=== PATIENT | female | born 1950 | race Caucasian/White ===

== ENCOUNTER 2019-01-28 11:01 | Inpatient (IN) | payer BC ==
[2019-01-28 12:59] VITALS: BMI 20.5
[2019-01-28] MEDS ORDERED: ALBUTEROL SO4 8 GM HFA INHALER IH PRN (13:37)
[2019-01-28] MEDS ORDERED: ALBUTEROL SO4 2.5/IPRATROPIUM 0.5 INH SOL 3 ML VIAL.NEB. NEB PRN (13:39)
--- NOTE | 2019-01-28 13:42 | HP ---
CIWA Score Nausea/Vomitin Muscle Tremors: 4-Moderate,w/Arms Extend Anxiety: 3 Agitation: 0-Normal Activity Paroxysmal Sweats: 1-Minimal Palms Moist Orientation: 0-Oriented Tacttile Disturbances: 1-Very Mild Itch/Numbness Auditory Disturbances: 0-None Visual Disturbances: 0-None Headache: 0-None Present CIWA-Ar Total Score: 12 - Admission Criteria OAS Guidelines: Admission for Medically Managed Detox: Requires at least one of the followin. CIWA greater than 12 2. Seizures within the past 24 hours 3. Delirium tremens within the past 24 hours 4. Hallucinations within the past 24 hours 5. Acute intervention needed for co occurring medical disorder 6. Acute intervention needed for co occurring psychiatric disorder 7. Severe withdrawal that cannot be handled at a lower level of care (continued vomiting, continued diarrhea, abnormal vital signs) requiring intravenous medication and/or fluids 8. Patient presents the following: CIWA greater than 12 Admission Criteria Met: Admission criteria met Admission ROS [facility] Chief Complaint: alcohol detox Allergies/Adverse Reactions: Allergies Allergy/AdvReac Type Severity Reaction Status Date / Time levofloxacin [From Levaquin] Allergy Unknown Vomiting Verified 01/28/19 12:30 History of Present Illness: 68 yo female with hx alcohol depence is here seeking detox. Reports was evaluated at [facility] last night for withdrawal symptoms and was referred to our facility d/t lack of beds. Reports last detox at [facility] detox two years ago. PMHX: HDL, Pancreatitis, HTN, Asthma, GERD, OA, Chronic Back pain Denies psych hx Denies SI/HI Denies hx of seizures or blackouts Reports no significant period of sobriety Exam Limitations: No Limitations - Ebola screening Have you traveled outside of the country in the last 21 days: No Have you had contact with anyone from an Ebola affected area: No Do you have a fever: No - Review of Systems Constitutional: Loss of Appetite, Weakness, Other (fatigue) EENT: reports: No Symptoms Reported Respiratory: reports: No Symptoms reported Cardiac: reports: No Symptoms Reported GI: reports: Nausea, Vomiting, Indigestion : reports: Dysuria Musculoskeletal: reports: Back Pain Integumentary: reports: No Symptoms Reported Neuro: reports: Weakness Hematology: reports: No Symptoms Reported Psychiatric: reports: Orientated x3, Anxious Other Systems: Reviewed and Negative Patient History - Patient Medical History Hx Anemia: No Hx Asthma: Yes Hx Chronic Obstructive Pulmonary Disease (COPD): No Hx Cancer: Yes (melanona tx ) Hx Cardiac Disorders: No Hx Congestive Heart Failure: No Hx Hypertension: Yes (on losartan 50 mg qd) Hx Hypercholesterolemia: Yes Hx Pacemaker: No HX Cerebrovascular Accident: No Hx Seizures: No Hx Dementia: No Hx Diabetes: No Hx Gastrointestinal Disorders: Yes (GERD, Pancreatitis ) Hx Liver Disease: No Hx Genitourinary Disorders: Yes (hx of hystorectomy 2000) Hx Sexually Transmitted Disorders: No Hx Renal Disease (ESRD): No Hx Thyroid Disease: No Hx Human Immunodeficiency Virus (HIV): No (declines testing ) Hx Hepatitis C: No Hx Depression: No Hx Suicide Attempt: No Hx Bipolar Disorder: No Hx Schizophrenia: No - Patient Surgical History Past Surgical History: Yes Other Surgical History: hystorectomy, melenomam foot sx - PPD History Previous Implant?: No (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 History Hx Alcohol Use: Yes Hx Substance Use: Yes Substance Use Type: Alcohol Hx Substance Use Treatment: Yes ([facility] detox two years ago.) - Substances abused Alcohol Substance route: Oral Frequency: Daily Amount used: 6 glasses of danny (8oz) Age of first use: 15 Date of last use: 01/28/19 Family Disease History - Family Disease History Family History: Denies Admission Physical Exam BHS - Vital Signs Vital Signs: Vital Signs - 24 hr 01/28/19 12:54 Temperature 99.3 F Pulse Rate 91 H Blood Pressure 86/59 L - Physical General Appearance: Yes: Appropriately Dressed, Thin, Tremorous, Anxious HEENTM: Yes: EOMI, Hearing grossly Normal, Normal ENT Inspection, Normocephalic , Normal Voice, DEBORAH, Pharynx Normal, Tm's normal Respiratory: Yes: Chest Non-Tender, Lungs Clear, Normal Breath Sounds, No Respiratory Distress, No Accessory Muscle Use Neck: Yes: Within Normal Limits Breast: Yes: Breast Exam Deferred Cardiology: Yes: Regular Rhythm, Regular Rate Abdominal: Yes: Normal Bowel Sounds, Non Tender, Flat, Soft Genitourinary: Yes: Within Normal Limits Back: Yes: Normal Inspection Musculoskeletal: Yes: full range of Motion, Gait Steady, Pelvis Stable, Back pain Extremities: Yes: Normal Capillary Refill, Normal Inspection, Normal Range of Motion, Non-Tender Neurological: Yes: 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 intact, Fully Oriented, Alert, Motor Strength 5/5, Depressed Affect Integumentary: Yes: Normal Color, Dry, Warm Lymphatic: Yes: Within Normal Limits - Diagnostic (1) Dysuria Current Visit: Yes Status: Acute (2) History of positive PPD Current Visit: Yes Status: Chronic (3) Alcohol dependence with uncomplicated withdrawal Current Visit: Yes Status: Acute (4) GERD (gastroesophageal reflux disease) Current Visit: Yes Status: Chronic (5) Hx of pancreatitis Current Visit: Yes Status: Chronic Comment: on Creon (6) HTN (hypertension) Current Visit: Yes Status: Chronic Qualifiers: Hypertension type: essential hypertension Qualified Code(s): I10 - Essential (primary) hypertension (7) Asthma Current Visit: Yes Status: Chronic Qualifiers: Asthma severity: severe Asthma persistence: persistent Asthma complication type: uncomplicated Qualified Code(s): J45.50 - Severe persistent asthma, uncomplicated (8) Hyperlipidemia Current Visit: Yes Status: Chronic Qualifiers: Hyperlipidemia type: unspecified Qualified Code(s): E78.5 - Hyperlipidemia , unspecified Cleared for Admission S - Detox or Rehab [facility] Level of Care: Medically Managed Detox Regimen/Protocol: Librium Breathalyzer - Breathalyzer Breathalyzer: 0 POC Urine test - Test device test lot number: [id number] Expiration date: 06/11/20 - Control test control: Yes - Result Urine Test Results: Negative - NO line present Urine Drug Screen - Test Device Lot number: [id number] Expiration date: 09/11/20 - Control Is test valid?: Yes - Results Drug screen NEGATIVE: Yes Inpatient Rehab Admission - Rehab Decision to Admit Inpatient rehab admission?: No
[2019-01-28] MEDS ORDERED: MENTHOL/PHENOL 1 EACH UD MM PRN (13:49)
[2019-01-28] MEDS ORDERED: MELATONIN 5 MG TABLETS PO PRN (13:49)
[2019-01-28] MEDS ORDERED: guaiFENesin 200 MG/10 ML 10 ML UNIT-DOSE CUPS PO PRN (13:49)
[2019-01-28] MEDS ORDERED: MAGNESIUM HYDROX 2400MG/30ML ORAL SUSPENSION 30 ML CUP PO PRN (13:49)
[2019-01-28] MEDS ORDERED: METHOCARBAMOL 500 MG TABLET PO PRN (13:49)
[2019-01-28] MEDS ORDERED: MAGNESIUM CITRATE 300 ML BOTTLE PO PRN (13:49)
[2019-01-28] MEDS ORDERED: P-EPHED 60MG/TRIPROLIDI 2.5MG TABLET PO PRN (13:49)
[2019-01-28] MEDS ORDERED: chlordiazePOXIDE HCL 10 MG CAPSULE PO PRN (13:49)
[2019-01-28] MEDS ORDERED: ACETAMINOPHEN 325 MG TABLET (FP) PO PRN ×2 (13:49)
[2019-01-28] MEDS ORDERED: IBUPROFEN 400 MG TABLET (FP) PO PRN (13:49)
[2019-01-28] MEDS ORDERED: BISMUTH SUBSALICYLATE 262 MG/15 ML BTL PO PRN (13:49)
[2019-01-28 16:36] LABS: HEMATOCRIT 34.7 % (32.4-45.2); HEMOGLOBIN 12.1 GM/dL (10.7-15.3); MCH 35.2 pg (25.7-33.7); MCHC 34.8 g/dl (32.0-36.0); MEAN CELL VOLUME 101.1 fl (80-96); MEAN PLT VOLUME 8.9 fl (7.5-11.1); PLATELET COUNT 260 K/MM3 (134-434); RBC 3.43 M/mm3 (3.60-5.2); RDW 14.2 % (11.6-15.6); WHITE BLOOD COUNT 7.3 K/mm3 (4.0-10.0)
[2019-01-28 16:43] LABS: ALBUMIN 3.4 g/dl (3.4-5.0); ALK PHOS 67 U/L (45-117); ANION GAP 6 MMOL/L (8-16); BILIRUBIN,TOTAL 0.6 mg/dL (0.2-1); BLOOD UREA NITROGEN 13 mg/dL (7-18); CALCIUM 9.4 mg/dL (8.5-10.1); CHLORIDE 104 mmol/L (98-107); CO2 30 mmol/L (21-32); GLUCOSE,RANDOM 108 mg/dL (74-106); POTASSIUM 3.4 mmol/L (3.5-5.1); SGOT/AST 40 U/L (15-37); SGPT/ALT 52 U/L (13-61); SODIUM 139 mmol/L (136-145); TOT PROT 6.6 g/dl (6.4-8.2)
[2019-01-28 17:36] LABS: URINE APPEARANCE CLOUDY; URINE BILIRUBIN NEGATIVE (NEGATIVE); URINE COLOR YELLOW; URINE GLUCOSE (UA) NEGATIVE (NEGATIVE); URINE KETONE NEGATIVE (NEGATIVE); URINE LEUK ESTERASE 3+ (NEGATIVE); URINE NITRITE NEGATIVE (NEGATIVE); URINE PROTEIN 1+ (NEGATIVE); URINE UROBILINOGEN 0.2 mg/dL (0.2-1.0)
[2019-01-28] MEDS: PATIENT'S OWN MEDICATION (NON-FORMULARY) (Lipase/Protease/Amylase [Creon Dr 24,000 Units C PO SCH (17:37)
[2019-01-28 19:20] LABS: EPI CELLS FEW /HPF (0-5/HPF); URINE BACTERIA RARE /hpf (NEGATIVE); URINE WBC 30-50 /hpf (0-5)
[2019-01-28 19:21] LABS: URINE RBC 0-2 /hpf (0-4)
[2019-01-28] MEDS: MAG HYDROX/AL HYDROX/SIMETH 30 ML UNIT-DOSE CUP PO PRN (21:14)
[2019-01-28] MEDS: chlordiazePOXIDE HCL 25 MG CAPSULE PO SCH (22:31)
[2019-01-28] MEDS: THIAMINE HCL 100 MG TABLET (FP) PO SCH (22:31)
[2019-01-29] MEDS: chlordiazePOXIDE HCL 25 MG CAPSULE PO SCH ×2 (05:34→12:10)
[2019-01-29] MEDS: PATIENT'S OWN MEDICATION (NON-FORMULARY) (Lipase/Protease/Amylase [Creon Dr 24,000 Units C PO SCH ×3 (07:04→18:39)
--- NOTE | 2019-01-29 09:40 | PN ---
[facility] CIWA - CIWA Score Nausea/Vomitin-No Nausea/No Vomiting Muscle Tremors: 3 Anxiety: 3 Agitation: 0-Normal Activity Paroxysmal Sweats: 2 Orientation: 0-Oriented Tacttile Disturbances: 1-Very Mild Itch/Numbness Auditory Disturbances: 0-None Visual Disturbances: 0-None Headache: 0-None Present CIWA-Ar Total Score: 9 S Progress Note (SOAP) Subjective: c/o interrupted slee, dysuria Objective: 01/29/19 09:39 Vital Signs Temperature 98.2 F 01/29/19 06:00 Pulse Rate 86 01/29/19 06:00 Respiratory Rate 16 01/29/19 06:00 Blood Pressure 107/72 01/29/19 06:00 O2 Sat by Pulse Oximetry (%) Laboratory Last Values WBC 7.3 K/mm3 (4.0-10.0) 01/28/19 11:35 RBC 3.43 M/mm3 (3.60-5.2) L 01/28/19 11:35 Hgb 12.1 GM/dL (10.7-15.3) 01/28/19 11:35 Hct 34.7 % (32.4-45.2) 01/28/19 11:35 MCV 101.1 fl (80-96) H 01/28/19 11:35 MCH 35.2 pg (25.7-33.7) H 01/28/19 11:35 MCHC 34.8 g/dl (32.0-36.0) 01/28/19 11:35 RDW 14.2 % (11.6-15.6) 01/28/19 11:35 Plt Count 260 K/MM3 (134-434) 01/28/19 11:35 MPV 8.9 fl (7.5-11.1) 01/28/19 11:35 Sodium 139 mmol/L (136-145) 01/28/19 11:35 Potassium 3.4 mmol/L (3.5-5.1) L 01/28/19 11:35 Chloride 104 mmol/L (98-107) 01/28/19 11:35 Carbon Dioxide 30 mmol/L (21-32) 01/28/19 11:35 Anion Gap 6 MMOL/L (8-16) L 01/28/19 11:35 BUN 13 mg/dL (7-18) 01/28/19 11:35 Creatinine 1.0 mg/dL (0.55-1.3) 01/28/19 11:35 Creat Clearance w eGFR 55.14 (>60) 01/28/19 11:35 Random Glucose 108 mg/dL (74-106) H 01/28/19 11:35 Calcium 9.4 mg/dL (8.5-10.1) 01/28/19 11:35 Total Bilirubin 0.6 mg/dL (0.2-1) 01/28/19 11:35 AST 40 U/L (15-37) H 01/28/19 11:35 ALT 52 U/L (13-61) 01/28/19 11:35 Alkaline Phosphatase 67 U/L (45-117) 01/28/19 11:35 Total Protein 6.6 g/dl (6.4-8.2) 01/28/19 11:35 Albumin 3.4 g/dl (3.4-5.0) 01/28/19 11:35 Urine Color Yellow 01/28/19 15:40 Urine Appearance Cloudy 01/28/19 15:40 Urine pH 5.0 (5.0-8.0) 01/28/19 15:40 Ur Specific [place] 1.008 (1.010-1.035) L 01/28/19 15:40 Urine Protein 1+ (NEGATIVE) H 01/28/19 15:40 Urine Glucose (UA) Negative (NEGATIVE) 01/28/19 15:40 Urine Ketones Negative (NEGATIVE) 01/28/19 15:40 Urine Blood 3+ (NEGATIVE) H 01/28/19 15:40 Urine Nitrite Negative (NEGATIVE) 01/28/19 15:40 Urine Bilirubin Negative (NEGATIVE) 01/28/19 15:40 Urine Urobilinogen 0.2 mg/dL (0.2-1.0) 01/28/19 15:40 Ur Leukocyte Esterase 3+ (NEGATIVE) H 01/28/19 15:40 Urine WBC (Auto) 30-50 /hpf (0-5) 01/28/19 15:40 Urine RBC (Auto) 0-2 /hpf (0-4) 01/28/19 15:40 U Epithel Cells (Auto) Few /HPF (0-5/HPF) 01/28/19 15:40 Urine Bacteria (Auto) Rare /hpf (NEGATIVE) 01/28/19 15:40 Patient Aox3 no acute distress, +back pain, +tremor, full ROM ambulating in the unit withdrawal sx dysuria + hematuria Labs noted UC pending Abnormal UA repeat will start bactrim BID x 3 days tx urinary symptoms increase po fluids continue detox continue to monitor 01/29/19 13:38
[2019-01-29] MEDS: PATIENT'S OWN MEDICATION (NON-FORMULARY) (Tiotropium Bromide [Spiriva] 18 MCG) IH SCH (10:48)
[2019-01-29] MEDS: PATIENT'S OWN MEDICATION (NON-FORMULARY) (Omeprazole 40 MG) PO SCH (10:49)
[2019-01-29] MEDS: LOSARTAN POTASSIUM 50 MG TABLET (FP) PO SCH (10:50)
[2019-01-29] MEDS: ATORVASTATIN CA 40 MG TABLET (FP) PO SCH (10:50)
[2019-01-29] MEDS: PRENATAL VITAMINS W/ FOLIC ACID TABLET (FP) PO SCH (10:50)
[2019-01-29] MEDS: SERTRALINE HCL 50 MG TABLET (FP) PO SCH (10:50)
[2019-01-29] MEDS ORDERED: NITROFURANTOIN MACROCRYSTAL 50 MG CAPSULE (FP) PO SCH (12:00)
[2019-01-29] MEDS: SULFAMETHOXAZOLE/TRIMETHOPRIM 800MG/160MG D.S. TABLET PO SCH ×2 (12:10→22:25)
[2019-01-29] MEDS: MAG HYDROX/AL HYDROX/SIMETH 30 ML UNIT-DOSE CUP PO PRN (22:24)
[2019-01-29] MEDS: chlordiazePOXIDE 5 MG CAPSULE PO SCH (22:25)
[2019-01-29] MEDS: THIAMINE HCL 100 MG TABLET (FP) PO SCH (22:26)
[2019-01-30] MEDS: chlordiazePOXIDE 5 MG CAPSULE PO SCH ×2 (05:25→12:49)
[2019-01-30] MEDS: PATIENT'S OWN MEDICATION (NON-FORMULARY) (Lipase/Protease/Amylase [Creon Dr 24,000 Units C PO SCH ×2 (06:48→11:14)
[2019-01-30] MEDS: PATIENT'S OWN MEDICATION (NON-FORMULARY) (Tiotropium Bromide [Spiriva] 18 MCG) IH SCH (10:25)
[2019-01-30] MEDS: LOSARTAN POTASSIUM 50 MG TABLET (FP) PO SCH (10:25)
[2019-01-30] MEDS: SERTRALINE HCL 50 MG TABLET (FP) PO SCH (10:25)
[2019-01-30] MEDS: ATORVASTATIN CA 40 MG TABLET (FP) PO SCH (10:25)
[2019-01-30] MEDS: PRENATAL VITAMINS W/ FOLIC ACID TABLET (FP) PO SCH (10:25)
[2019-01-30] MEDS: SULFAMETHOXAZOLE/TRIMETHOPRIM 800MG/160MG D.S. TABLET PO SCH (10:25)
[2019-01-30] MEDS: PATIENT'S OWN MEDICATION (NON-FORMULARY) (Omeprazole 40 MG) PO SCH (10:41)
--- NOTE | 2019-01-30 17:34 | PN ---
S CIWA - CIWA Score Nausea/Vomitin-No Nausea/No Vomiting Muscle Tremors: None Anxiety: 2 Agitation: 0-Normal Activity Paroxysmal Sweats: 2 Orientation: 0-Oriented Tacttile Disturbances: 0-None Auditory Disturbances: 0-None Visual Disturbances: 0-None Headache: 2-Mild CIWA-Ar Total Score: 6 BHS Progress Note (SOAP) Subjective: Sweats headache Objective: 01/30/19 17:32 Vital Signs 01/30/19 01/30/19 10:17 14:43 Temperature 98.6 F 97.5 F L Pulse Rate 83 83 Respiratory 18 18 Rate Blood Pressure 91/50 L 96/51 L Laboratory Last Values WBC 7.3 K/mm3 (4.0-10.0) 01/28/19 11:35 RBC 3.43 M/mm3 (3.60-5.2) L 01/28/19 11:35 Hgb 12.1 GM/dL (10.7-15.3) 01/28/19 11:35 Hct 34.7 % (32.4-45.2) 01/28/19 11:35 MCV 101.1 fl (80-96) H 01/28/19 11:35 MCH 35.2 pg (25.7-33.7) H 01/28/19 11:35 MCHC 34.8 g/dl (32.0-36.0) 01/28/19 11:35 RDW 14.2 % (11.6-15.6) 01/28/19 11:35 Plt Count 260 K/MM3 (134-434) 01/28/19 11:35 MPV 8.9 fl (7.5-11.1) 01/28/19 11:35 Sodium 139 mmol/L (136-145) 01/28/19 11:35 Potassium 3.4 mmol/L (3.5-5.1) L 01/28/19 11:35 Chloride 104 mmol/L (98-107) 01/28/19 11:35 Carbon Dioxide 30 mmol/L (21-32) 01/28/19 11:35 Anion Gap 6 MMOL/L (8-16) L 01/28/19 11:35 BUN 13 mg/dL (7-18) 01/28/19 11:35 Creatinine 1.0 mg/dL (0.55-1.3) 01/28/19 11:35 Creat Clearance w eGFR 55.14 (>60) 01/28/19 11:35 Random Glucose 108 mg/dL (74-106) H 01/28/19 11:35 Calcium 9.4 mg/dL (8.5-10.1) 01/28/19 11:35 Total Bilirubin 0.6 mg/dL (0.2-1) 01/28/19 11:35 AST 40 U/L (15-37) H 01/28/19 11:35 ALT 52 U/L (13-61) 01/28/19 11:35 Alkaline Phosphatase 67 U/L (45-117) 01/28/19 11:35 Total Protein 6.6 g/dl (6.4-8.2) 01/28/19 11:35 Albumin 3.4 g/dl (3.4-5.0) 01/28/19 11:35 Urine Color Yellow 01/28/19 15:40 Urine Appearance Cloudy 01/28/19 15:40 Urine pH 5.0 (5.0-8.0) 01/28/19 15:40 Ur Specific [place] 1.008 (1.010-1.035) L 01/28/19 15:40 Urine Protein 1+ (NEGATIVE) H 01/28/19 15:40 Urine Glucose (UA) Negative (NEGATIVE) 01/28/19 15:40 Urine Ketones Negative (NEGATIVE) 01/28/19 15:40 Urine Blood 3+ (NEGATIVE) H 01/28/19 15:40 Urine Nitrite Negative (NEGATIVE) 01/28/19 15:40 Urine Bilirubin Negative (NEGATIVE) 01/28/19 15:40 Urine Urobilinogen 0.2 mg/dL (0.2-1.0) 01/28/19 15:40 Ur Leukocyte Esterase 3+ (NEGATIVE) H 01/28/19 15:40 Urine WBC (Auto) 30-50 /hpf (0-5) 01/28/19 15:40 Urine RBC (Auto) 0-2 /hpf (0-4) 01/28/19 15:40 U Epithel Cells (Auto) Few /HPF (0-5/HPF) 01/28/19 15:40 Urine Bacteria (Auto) Rare /hpf (NEGATIVE) 01/28/19 15:40 RPR Titer Nonreactive (NONREACTIVE) 01/28/19 11:35 Labs noted Assessment: 01/30/19 17:32 AOX3 no distress Full rom ambulating in the unit Plan: Continue detox increase fluids continue to monitor
[2019-01-30] MEDS ORDERED: chlordiazePOXIDE HCL 10 MG CAPSULE PO PRN (21:00)
[2019-01-31] MEDS: PATIENT'S OWN MEDICATION (NON-FORMULARY) (Lipase/Protease/Amylase [Creon Dr 24,000 Units C PO SCH ×3 (00:11→13:07)
[2019-01-31] MEDS: chlordiazePOXIDE HCL 10 MG CAPSULE PO SCH ×3 (00:19→13:07)
[2019-01-31] MEDS: SULFAMETHOXAZOLE/TRIMETHOPRIM 800MG/160MG D.S. TABLET PO SCH ×2 (00:20→10:17)
[2019-01-31] MEDS: THIAMINE HCL 100 MG TABLET (FP) PO SCH (00:21)
[2019-01-31 06:54] VITALS: BP 97/58; PULSE 94; TEMP 98.2
[2019-01-31] MEDS: PRENATAL VITAMINS W/ FOLIC ACID TABLET (FP) PO SCH (10:17)
[2019-01-31] MEDS: SERTRALINE HCL 50 MG TABLET (FP) PO SCH (10:17)
[2019-01-31] MEDS: ATORVASTATIN CA 40 MG TABLET (FP) PO SCH (10:17)
[2019-01-31] MEDS: LOSARTAN POTASSIUM 50 MG TABLET (FP) PO SCH (10:18)
[2019-01-31] MEDS: PATIENT'S OWN MEDICATION (NON-FORMULARY) (Tiotropium Bromide [Spiriva] 18 MCG) IH SCH (10:18)
--- NOTE | 2019-01-31 13:01 | EKG ---
Test Reason : Blood Pressure : / mmHG Vent. Rate : 078 BPM Atrial Rate : 078 BPM P-R Int : 170 ms QRS Dur : 066 ms QT Int : 382 ms P-R-T Axes : 072 022 053 degrees QTc Int : 435 ms POOR DATA QUALITY, INTERPRETATION MAY BE ADVERSELY AFFECTED NORMAL SINUS RHYTHM NORMAL ECG WHEN COMPARED WITH ECG OF 19-MAR-2001 11:51, PREMATURE SUPRAVENTRICULAR COMPLEXES ARE NO LONGER PRESENT NONSPECIFIC T WAVE ABNORMALITY NOW EVIDENT IN INFERIOR LEADS Confirmed by MD DYLAN, AMANDA ([id number]) on 01/31/2019 1:01:00 PM Referred By: Confirmed By:AMANDA RICHARDSON MD
[2019-01-31] MEDS: PATIENT'S OWN MEDICATION (NON-FORMULARY) (Omeprazole 40 MG) PO SCH (13:07)
[2019-01-31] MEDS: MAG HYDROX/AL HYDROX/SIMETH 30 ML UNIT-DOSE CUP PO PRN (13:07)
--- NOTE | 2019-01-31 16:35 | DS ---
[facility] Detox Discharge Summary Admission Date: 01/28/19 Discharge Date: 01/31/19 - History Present History: Alcohol Dependence Additional Comments: Patient completed detox successfully. Accepted to [facility]. Patient is A/A/Ox3, in nad, ambulatory. Pertinent Past History: Asthma HTN GERD HLD Pancreatitis History of PPD Positive (TB exposure, treated) Alcohol dependence - Physical Exam Results Vital Signs: Vital Signs Temperature 98.2 F 01/31/19 06:00 Pulse Rate 94 H 01/31/19 06:00 Respiratory Rate 16 01/31/19 06:00 Blood Pressure 97/58 L 01/31/19 06:00 O2 Sat by Pulse Oximetry (%) Pertinent Admission Physical Exam Findings: Withdrawal symptoms Laboratory Tests 01/28/19 01/28/19 01/28/19 11:35 11:35 11:35 WBC 7.3 RBC 3.43 L Hgb 12.1 Hct 34.7 MCV 101.1 H MCH 35.2 H MCHC 34.8 RDW 14.2 Plt Count 260 MPV 8.9 Sodium 139 Potassium 3.4 L Chloride 104 Carbon Dioxide 30 Anion Gap 6 L BUN 13 Creatinine 1.0 Creat Clearance w eGFR 55.14 Random Glucose 108 H Calcium 9.4 Total Bilirubin 0.6 AST 40 H ALT 52 Alkaline Phosphatase 67 Total Protein 6.6 Albumin 3.4 Urine Color Urine Appearance Urine pH Ur Specific [place] Urine Protein Urine Glucose (UA) Urine Ketones Urine Blood Urine Nitrite Urine Bilirubin Urine Urobilinogen Ur Leukocyte Esterase Urine WBC (Auto) Urine RBC (Auto) U Epithel Cells (Auto) Urine Bacteria (Auto) RPR Titer Nonreactive 01/28/19 15:40 WBC RBC Hgb Hct MCV MCH MCHC RDW Plt Count MPV Sodium Potassium Chloride Carbon Dioxide Anion Gap BUN Creatinine Creat Clearance w eGFR Random Glucose Calcium Total Bilirubin AST ALT Alkaline Phosphatase Total Protein Albumin Urine Color Yellow Urine Appearance Cloudy Urine pH 5.0 Ur Specific [place] 1.008 L Urine Protein 1+ H Urine Glucose (UA) Negative Urine Ketones Negative Urine Blood 3+ H Urine Nitrite Negative Urine Bilirubin Negative Urine Urobilinogen 0.2 Ur Leukocyte Esterase 3+ H Urine WBC (Auto) 30-50 Urine RBC (Auto) 0-2 U Epithel Cells (Auto) Few Urine Bacteria (Auto) Rare RPR Titer Labs reviewed: K 3.4, noted with ZOIE and abnormal UA. Will order KDur 40Meq PO x 2 doses, ZOIE: repeat BMP, encouraged PO water hydration; Abnormal UA: follow up on urine culture result, can continue bactrim ds - Treatment Hospital Course: Detox Protocol Followed, Detoxed Safely, Responded well, Discharged Condition Good, Rehab Referral Accepted - Medication Discharge Medications: Ambulatory Orders Albuterol Sulfate Inhaler - [Ventolin Hfa Inhaler -] 2 inh PO Q4H PRN 01/28/19 Atorvastatin Calcium 40 mg PO DAILY 01/28/19 Fluticasone/Vilanterol [Breo Ellipta 100-25 Mcg INH] 1 each IH DAILY 01/28/19 Lipase/Protease/Amylase [Creon Dr 24,000 Units Capsule] 1 each PO DAILY Losartan Potassium [Cozaar -] 50 mg PO DAILY 01/28/19 Omeprazole 40 mg PO DAILY 01/28/19 Sertraline HCl [Zoloft -] 50 mg PO DAILY 01/28/19 Tiotropium [place] [Spiriva] 18 mcg IH DAILY 01/28/19 - Diagnosis (1) Abnormal finding on urinalysis Status: Acute (2) Alcohol dependence with uncomplicated withdrawal Status: Acute (3) Asthma Status: Chronic Qualifiers: Asthma severity: severe Asthma persistence: persistent Asthma complication type: uncomplicated Qualified Code(s): J45.50 - Severe persistent asthma, uncomplicated (4) GERD (gastroesophageal reflux disease) Status: Chronic (5) HTN (hypertension) Status: Chronic Qualifiers: Hypertension type: essential hypertension Qualified Code(s): I10 - Essential (primary) hypertension (6) History of positive PPD Status: Chronic (7) Hx of pancreatitis Status: Chronic (8) Hyperlipidemia Status: Chronic Qualifiers: Hyperlipidemia type: unspecified Qualified Code(s): E78.5 - Hyperlipidemia , unspecified - AMA Did Patient Leave Against Medical Advice: No (Accepted to [facility])
== END 2019-01-31 13:55 | disposition other institution (70) | DRG 897 ==
LOC: YASAS 11:01 → Y6N 14:17
PROVIDERS: ADMIT Surgery; ATTEND Surgery
PROC: HZ2ZZZZ Detoxification Services for Substance Abuse Treatment (ICD-10-PCS; principal; 2019-01-28)
DX: F10.230 Alcohol dependence with withdrawal, uncomplicated (principal); I10 Essential (primary) hypertension; J45.50 Severe persistent asthma, uncomplicated; K21.9 Gastro-esophageal reflux disease without esophagitis; R76.11 Nonspecific reaction to tuberculin skin test without active tuberculosis; R82.90 Unspecified abnormal findings in urine; E78.5 Hyperlipidemia, unspecified; R30.0 Dysuria; R31.9 Hematuria, unspecified; M19.90 Unspecified osteoarthritis, unspecified site; Z90.710 Acquired absence of both cervix and uterus; Z87.19 Personal history of other diseases of the digestive system; Z85.820 Personal history of malignant melanoma of skin; Z87.891 Personal history of nicotine dependence
CPT/HCPCS: 36415; 71046-TC-FY; 80053; 81003; 85027; 86593; 87086; 93005; 93010

== ENCOUNTER 2019-01-31 13:25 | Inpatient (IN) | payer BC, OTHER ==
[2019-01-31] MEDS ORDERED: guaiFENesin 200 MG/10 ML 10 ML UNIT-DOSE CUPS PO PRN (16:42)
[2019-01-31] MEDS ORDERED: IBUPROFEN 400 MG TABLET (FP) PO PRN (16:42)
[2019-01-31] MEDS ORDERED: MENTHOL/PHENOL 1 EACH UD MM PRN (16:42)
[2019-01-31] MEDS ORDERED: MAGNESIUM HYDROX 2400MG/30ML ORAL SUSPENSION 30 ML CUP PO PRN (16:42)
[2019-01-31] MEDS ORDERED: LOPERAMIDE HCL 2 MG CAPSULE PO PRN (16:42)
[2019-01-31] MEDS ORDERED: MAGNESIUM CITRATE 300 ML BOTTLE PO PRN (16:42)
[2019-01-31] MEDS ORDERED: P-EPHED 60MG/TRIPROLIDI 2.5MG TABLET PO PRN (16:42)
[2019-01-31] MEDS ORDERED: ACETAMINOPHEN 325 MG TABLET (FP) PO PRN (16:42)
--- NOTE | 2019-01-31 16:42 | HP ---
[facility] Rehab Assess/Revision - Admission History Admitted to Rehab from: [facility] Date of Admission to Rehab: 01/31/2019 - Vital signs Vital Signs: Vital Signs Period Temp Pulse Resp BP Sys/Fernandez Pulse Ox Last 24 Hr 98.1 F 81 16 91/60 - Findings Detox History & Physical reviewed: Yes Concur with findings: Yes Inpatient Rehab Admission - Rehab Decision to Admit Inpatient rehab admission?: Yes - Initial Determination Are CD services needed?: No Free of communicable disease: Yes Not in need of hospitalization: Yes - Rehab Admission Criteria Previous failed treatment: Yes Poor recovery environment: Yes Comorbidities: Yes Lacks judgement: Yes Patient is meeting Inpatient Rehab admission criteria:: Yes
[2019-01-31] MEDS ORDERED: ALBUTEROL SO4 2.5/IPRATROPIUM 0.5 INH SOL 3 ML VIAL.NEB. NEB PRN (16:44)
[2019-01-31] MEDS ORDERED: ALBUTEROL SO4 8 GM HFA INHALER IH PRN (16:44)
[2019-01-31] MEDS: SULFAMETHOXAZOLE/TRIMETHOPRIM 800MG/160MG D.S. TABLET PO SCH (23:01)
[2019-01-31] MEDS: THIAMINE HCL 100 MG TABLET (FP) PO SCH (23:02)
[2019-02-01 09:51] LABS: ANION GAP 7 MMOL/L (8-16); BLOOD UREA NITROGEN 8 mg/dL (7-18); CALCIUM 8.7 mg/dL (8.5-10.1); CHLORIDE 105 mmol/L (98-107); CO2 26 mmol/L (21-32); CREATININE 0.9 mg/dL (0.55-1.3); GLUCOSE,RANDOM 127 mg/dL (74-106); POTASSIUM 3.7 mmol/L (3.5-5.1); SODIUM 138 mmol/L (136-145)
[2019-02-01] MEDS: PRENATAL VITAMINS W/ FOLIC ACID TABLET (FP) PO SCH (10:25)
[2019-02-01] MEDS: LOSARTAN POTASSIUM 50 MG TABLET (FP) PO SCH (10:25)
[2019-02-01] MEDS: SULFAMETHOXAZOLE/TRIMETHOPRIM 800MG/160MG D.S. TABLET PO SCH ×2 (10:25→21:45)
[2019-02-01] MEDS: TIOTROPIUM BROMIDE 2.5 MCG (SPIRIVA) RESPIMAT INHALER IH SCH (10:26)
[2019-02-01] MEDS: SERTRALINE HCL 50 MG TABLET (FP) PO SCH (10:26)
[2019-02-01] MEDS: THIAMINE HCL 100 MG TABLET (FP) PO SCH (21:21)
[2019-02-01] MEDS: METHOCARBAMOL 500 MG TABLET PO PRN (21:23)
[2019-02-01] MEDS: ATORVASTATIN CA 40 MG TABLET (FP) PO SCH (21:23)
[2019-02-01] MEDS ORDERED: PT OWN MED DRAWER 7, Y5N ONE (21:23)
[2019-02-01] MEDS: MAG HYDROX/AL HYDROX/SIMETH 30 ML UNIT-DOSE CUP PO PRN (21:25)
[2019-02-02] MEDS ORDERED: PT OWN MED DRAWER 7, Y5N ONE ×2 (05:59→16:55)
[2019-02-02] MEDS: SERTRALINE HCL 50 MG TABLET (FP) PO SCH (10:17)
[2019-02-02] MEDS: SULFAMETHOXAZOLE/TRIMETHOPRIM 800MG/160MG D.S. TABLET PO SCH (10:17)
[2019-02-02] MEDS: PRENATAL VITAMINS W/ FOLIC ACID TABLET (FP) PO SCH (10:17)
[2019-02-02] MEDS: TIOTROPIUM BROMIDE 2.5 MCG (SPIRIVA) RESPIMAT INHALER IH SCH (10:19)
[2019-02-02] MEDS: LOSARTAN POTASSIUM 50 MG TABLET (FP) PO SCH (10:20)
[2019-02-02] MEDS: LIPASE/PROTEASE/AMYLASE 6,000 UNIT CAPSULE PO SCH (16:35)
[2019-02-02] MEDS: METHOCARBAMOL 500 MG TABLET PO PRN (21:41)
[2019-02-02] MEDS: THIAMINE HCL 100 MG TABLET (FP) PO SCH (21:41)
[2019-02-02] MEDS: ATORVASTATIN CA 40 MG TABLET (FP) PO SCH (21:41)
[2019-02-03] MEDS ORDERED: PT OWN MED DRAWER 7, Y5N ONE ×2 (03:07→17:30)
[2019-02-03] MEDS: LIPASE/PROTEASE/AMYLASE 6,000 UNIT CAPSULE PO SCH ×3 (06:09→16:25)
[2019-02-03] MEDS: PRENATAL VITAMINS W/ FOLIC ACID TABLET (FP) PO SCH (10:11)
[2019-02-03] MEDS: LOSARTAN POTASSIUM 50 MG TABLET (FP) PO SCH ×2 (10:11→14:21)
[2019-02-03] MEDS: SERTRALINE HCL 50 MG TABLET (FP) PO SCH (10:12)
[2019-02-03] MEDS: TIOTROPIUM BROMIDE 2.5 MCG (SPIRIVA) RESPIMAT INHALER IH SCH (10:13)
[2019-02-03] MEDS: MAG HYDROX/AL HYDROX/SIMETH 30 ML UNIT-DOSE CUP PO PRN (20:05)
[2019-02-03] MEDS: THIAMINE HCL 100 MG TABLET (FP) PO SCH (21:50)
[2019-02-03] MEDS: hydrOXYzine PAMOATE 50 MG CAPSULE (FP) PO PRN (22:00)
[2019-02-03] MEDS: ATORVASTATIN CA 40 MG TABLET (FP) PO SCH (22:00)
[2019-02-04] MEDS ORDERED: PT OWN MED DRAWER 7, Y5N ONE (03:06)
[2019-02-04] MEDS: LIPASE/PROTEASE/AMYLASE 6,000 UNIT CAPSULE PO SCH ×3 (06:25→17:30)
[2019-02-04] MEDS: TIOTROPIUM BROMIDE 2.5 MCG (SPIRIVA) RESPIMAT INHALER IH SCH (09:53)
[2019-02-04] MEDS: SERTRALINE HCL 50 MG TABLET (FP) PO SCH (09:54)
[2019-02-04] MEDS: LOSARTAN POTASSIUM 50 MG TABLET (FP) PO SCH (09:54)
[2019-02-04] MEDS: PRENATAL VITAMINS W/ FOLIC ACID TABLET (FP) PO SCH (09:55)
[2019-02-04] MEDS: THIAMINE HCL 100 MG TABLET (FP) PO SCH (21:15)
[2019-02-04] MEDS: ATORVASTATIN CA 40 MG TABLET (FP) PO SCH (21:15)
[2019-02-04] MEDS: hydrOXYzine PAMOATE 50 MG CAPSULE (FP) PO PRN (21:16)
[2019-02-05] MEDS ORDERED: PT OWN MED DRAWER 7, Y5N ONE ×5 (05:55→16:58)
[2019-02-05] MEDS: LIPASE/PROTEASE/AMYLASE 6,000 UNIT CAPSULE PO SCH ×3 (06:14→16:56)
[2019-02-05] MEDS: LOSARTAN POTASSIUM 50 MG TABLET (FP) PO SCH (10:37)
[2019-02-05] MEDS: TIOTROPIUM BROMIDE 2.5 MCG (SPIRIVA) RESPIMAT INHALER IH SCH (10:38)
[2019-02-05] MEDS: PRENATAL VITAMINS W/ FOLIC ACID TABLET (FP) PO SCH (10:38)
[2019-02-05] MEDS: SERTRALINE HCL 50 MG TABLET (FP) PO SCH (10:39)
[2019-02-05] MEDS: ALBUTEROL SO4 0.083% IH SOL 2.5 MG/3 ML VIAL.NEB. NEB SCH ×3 (12:27→21:49)
--- NOTE | 2019-02-05 14:05 | PN ---
S Progress Note Note: S: Pt c/o b/l ankle swelling. Pt reports she feels like she has not been walking enough. Denies any history of chf or any trauma to both LE. Denies any pain at the moment. O:B/L le swelling non pitting noted AOx3, in no respiratory distress Vital Signs 02/05/19 02/05/19 06:54 10:29 Temperature 97.3 F L Pulse Rate 87 75 Respiratory 16 18 Rate Blood Pressure 115/71 114/75 Lab Results Sodium 138 mmol/L (136-145) 02/01/19 08:25 Potassium 3.7 mmol/L (3.5-5.1) 02/01/19 08:25 Chloride 105 mmol/L (98-107) 02/01/19 08:25 Carbon Dioxide 26 mmol/L (21-32) 02/01/19 08:25 Anion Gap 7 MMOL/L (8-16) L 02/01/19 08:25 BUN 8 mg/dL (7-18) 02/01/19 08:25 Creatinine 0.9 mg/dL (0.55-1.3) 02/01/19 08:25 Random Glucose 127 mg/dL (74-106) H 02/01/19 08:25 Calcium 8.7 mg/dL (8.5-10.1) 02/01/19 08:25 A: B/L LE swelling P:Ambulation and pillows to elevate B/L LE reforced. Notify staff if swelling gets worse.
[2019-02-05] MEDS ORDERED: ALBUTEROL SO4 2.5/IPRATROPIUM 0.5 INH SOL 3 ML VIAL.NEB. NEB PRN (16:44)
[2019-02-05] MEDS: ATORVASTATIN CA 40 MG TABLET (FP) PO SCH (21:03)
[2019-02-05] MEDS: THIAMINE HCL 100 MG TABLET (FP) PO SCH (21:03)
[2019-02-05] MEDS: MELATONIN 5 MG TABLETS PO PRN (21:03)
[2019-02-06] MEDS ORDERED: PT OWN MED DRAWER 7, Y5N ONE ×2 (05:54→16:57)
[2019-02-06] MEDS: LIPASE/PROTEASE/AMYLASE 6,000 UNIT CAPSULE PO SCH ×3 (06:33→16:56)
[2019-02-06] MEDS: ALBUTEROL SO4 0.083% IH SOL 2.5 MG/3 ML VIAL.NEB. NEB SCH ×4 (08:20→21:00)
[2019-02-06] MEDS: PRENATAL VITAMINS W/ FOLIC ACID TABLET (FP) PO SCH (10:25)
[2019-02-06] MEDS: SERTRALINE HCL 50 MG TABLET (FP) PO SCH (10:25)
[2019-02-06] MEDS: TIOTROPIUM BROMIDE 2.5 MCG (SPIRIVA) RESPIMAT INHALER IH SCH (10:26)
[2019-02-06] MEDS: LOSARTAN POTASSIUM 50 MG TABLET (FP) PO SCH (10:27)
[2019-02-06] MEDS: THIAMINE HCL 100 MG TABLET (FP) PO SCH (21:59)
[2019-02-06] MEDS: ATORVASTATIN CA 40 MG TABLET (FP) PO SCH (22:00)
[2019-02-07] MEDS: LIPASE/PROTEASE/AMYLASE 6,000 UNIT CAPSULE PO SCH ×3 (06:48→16:54)
[2019-02-07] MEDS: ALBUTEROL SO4 0.083% IH SOL 2.5 MG/3 ML VIAL.NEB. NEB SCH ×3 (08:40→21:44)
[2019-02-07] MEDS: SERTRALINE HCL 50 MG TABLET (FP) PO SCH (10:08)
[2019-02-07] MEDS: PRENATAL VITAMINS W/ FOLIC ACID TABLET (FP) PO SCH (10:08)
[2019-02-07] MEDS: TIOTROPIUM BROMIDE 2.5 MCG (SPIRIVA) RESPIMAT INHALER IH SCH (10:09)
[2019-02-07] MEDS: LOSARTAN POTASSIUM 50 MG TABLET (FP) PO SCH (10:09)
[2019-02-07] MEDS ORDERED: PT OWN MED DRAWER 7, Y5N ONE (16:48)
[2019-02-07] MEDS: THIAMINE HCL 100 MG TABLET (FP) PO SCH (21:19)
[2019-02-07] MEDS: ATORVASTATIN CA 40 MG TABLET (FP) PO SCH (21:19)
[2019-02-08] MEDS ORDERED: PT OWN MED DRAWER 7, Y5N ONE (06:02)
[2019-02-08] MEDS: LIPASE/PROTEASE/AMYLASE 6,000 UNIT CAPSULE PO SCH ×2 (06:35→10:17)
[2019-02-08] MEDS: LOSARTAN POTASSIUM 50 MG TABLET (FP) PO SCH (10:15)
[2019-02-08] MEDS: TIOTROPIUM BROMIDE 2.5 MCG (SPIRIVA) RESPIMAT INHALER IH SCH (10:16)
[2019-02-08] MEDS: PRENATAL VITAMINS W/ FOLIC ACID TABLET (FP) PO SCH (10:16)
[2019-02-08] MEDS: SERTRALINE HCL 50 MG TABLET (FP) PO SCH (10:17)
[2019-02-08] MEDS: ALBUTEROL SO4 0.083% IH SOL 2.5 MG/3 ML VIAL.NEB. NEB SCH ×2 (16:40→21:33)
[2019-02-08] MEDS: ATORVASTATIN CA 40 MG TABLET (FP) PO SCH (21:33)
[2019-02-08] MEDS: THIAMINE HCL 100 MG TABLET (FP) PO SCH (21:33)
[2019-02-09] MEDS: ALBUTEROL SO4 0.083% IH SOL 2.5 MG/3 ML VIAL.NEB. NEB SCH ×6 (02:14→19:45)
[2019-02-09] MEDS: PRENATAL VITAMINS W/ FOLIC ACID TABLET (FP) PO SCH (10:32)
[2019-02-09] MEDS: LOSARTAN POTASSIUM 50 MG TABLET (FP) PO SCH (10:32)
[2019-02-09] MEDS: SERTRALINE HCL 50 MG TABLET (FP) PO SCH (10:32)
[2019-02-09] MEDS: TIOTROPIUM BROMIDE 2.5 MCG (SPIRIVA) RESPIMAT INHALER IH SCH (10:33)
[2019-02-09] MEDS: LIPASE/PROTEASE/AMYLASE 6,000 UNIT CAPSULE PO SCH ×2 (12:49→16:44)
[2019-02-09] MEDS ORDERED: PT OWN MED DRAWER 7, Y5N ONE (16:43)
[2019-02-09] MEDS: MELATONIN 5 MG TABLETS PO PRN (21:12)
[2019-02-09] MEDS: ATORVASTATIN CA 40 MG TABLET (FP) PO SCH (21:12)
[2019-02-09] MEDS: THIAMINE HCL 100 MG TABLET (FP) PO SCH (21:13)
[2019-02-10] MEDS: ALBUTEROL SO4 0.083% IH SOL 2.5 MG/3 ML VIAL.NEB. NEB SCH (07:18)
[2019-02-10] MEDS: LIPASE/PROTEASE/AMYLASE 6,000 UNIT CAPSULE PO SCH ×4 (07:18→16:57)
[2019-02-10] MEDS: HYDROCHLOROTHIAZIDE 12.5 MG CAPSULE (FP) PO SCH (10:03)
[2019-02-10] MEDS: LOSARTAN POTASSIUM 50 MG TABLET (FP) PO SCH (10:03)
[2019-02-10] MEDS: SERTRALINE HCL 50 MG TABLET (FP) PO SCH (10:04)
[2019-02-10] MEDS: PRENATAL VITAMINS W/ FOLIC ACID TABLET (FP) PO SCH (10:04)
[2019-02-10] MEDS: TIOTROPIUM BROMIDE 2.5 MCG (SPIRIVA) RESPIMAT INHALER IH SCH (10:04)
[2019-02-10] MEDS ORDERED: PT OWN MED DRAWER 7, Y5N ONE (16:57)
[2019-02-10] MEDS: THIAMINE HCL 100 MG TABLET (FP) PO SCH (21:34)
[2019-02-10] MEDS: ATORVASTATIN CA 40 MG TABLET (FP) PO SCH (21:35)
[2019-02-11] MEDS: LIPASE/PROTEASE/AMYLASE 6,000 UNIT CAPSULE PO SCH ×3 (07:01→16:34)
[2019-02-11] MEDS ORDERED: PT OWN MED DRAWER 7, Y5N ONE ×3 (07:02→16:31)
[2019-02-11] MEDS: PRENATAL VITAMINS W/ FOLIC ACID TABLET (FP) PO SCH (10:00)
[2019-02-11] MEDS: SERTRALINE HCL 50 MG TABLET (FP) PO SCH (10:00)
[2019-02-11] MEDS: TIOTROPIUM BROMIDE 2.5 MCG (SPIRIVA) RESPIMAT INHALER IH SCH (10:01)
[2019-02-11] MEDS: HYDROCHLOROTHIAZIDE 12.5 MG CAPSULE (FP) PO SCH (10:02)
[2019-02-11] MEDS: LOSARTAN POTASSIUM 50 MG TABLET (FP) PO SCH (10:02)
[2019-02-11] MEDS: ATORVASTATIN CA 40 MG TABLET (FP) PO SCH (21:20)
[2019-02-11] MEDS: THIAMINE HCL 100 MG TABLET (FP) PO SCH (21:20)
[2019-02-11] MEDS: MELATONIN 5 MG TABLETS PO PRN (21:20)
[2019-02-12] MEDS: LIPASE/PROTEASE/AMYLASE 6,000 UNIT CAPSULE PO SCH ×3 (07:02→16:55)
[2019-02-12] MEDS: PRENATAL VITAMINS W/ FOLIC ACID TABLET (FP) PO SCH (10:21)
[2019-02-12] MEDS: LOSARTAN POTASSIUM 50 MG TABLET (FP) PO SCH (10:21)
[2019-02-12] MEDS: TIOTROPIUM BROMIDE 2.5 MCG (SPIRIVA) RESPIMAT INHALER IH SCH (10:22)
[2019-02-12] MEDS: SERTRALINE HCL 50 MG TABLET (FP) PO SCH (10:22)
[2019-02-12] MEDS: HYDROCHLOROTHIAZIDE 12.5 MG CAPSULE (FP) PO SCH (10:22)
[2019-02-12] MEDS ORDERED: PT OWN MED DRAWER 7, Y5N ONE (16:32)
[2019-02-12] MEDS: THIAMINE HCL 100 MG TABLET (FP) PO SCH (21:16)
[2019-02-12] MEDS: ATORVASTATIN CA 40 MG TABLET (FP) PO SCH (21:16)
[2019-02-13] MEDS: LIPASE/PROTEASE/AMYLASE 6,000 UNIT CAPSULE PO SCH ×3 (07:01→16:36)
[2019-02-13] MEDS: TIOTROPIUM BROMIDE 2.5 MCG (SPIRIVA) RESPIMAT INHALER IH SCH (10:27)
[2019-02-13] MEDS: HYDROCHLOROTHIAZIDE 12.5 MG CAPSULE (FP) PO SCH (10:27)
[2019-02-13] MEDS: PRENATAL VITAMINS W/ FOLIC ACID TABLET (FP) PO SCH (10:27)
[2019-02-13] MEDS: SERTRALINE HCL 50 MG TABLET (FP) PO SCH (10:27)
[2019-02-13] MEDS: LOSARTAN POTASSIUM 50 MG TABLET (FP) PO SCH (10:27)
[2019-02-13] MEDS ORDERED: PT OWN MED DRAWER 7, Y5N ONE (16:36)
[2019-02-13] MEDS: ATORVASTATIN CA 40 MG TABLET (FP) PO SCH (21:13)
[2019-02-13] MEDS: THIAMINE HCL 100 MG TABLET (FP) PO SCH (21:13)
[2019-02-14] MEDS: LIPASE/PROTEASE/AMYLASE 6,000 UNIT CAPSULE PO SCH ×3 (07:38→16:48)
[2019-02-14] MEDS: LOSARTAN POTASSIUM 50 MG TABLET (FP) PO SCH (10:19)
[2019-02-14] MEDS: PRENATAL VITAMINS W/ FOLIC ACID TABLET (FP) PO SCH (10:19)
[2019-02-14] MEDS: HYDROCHLOROTHIAZIDE 12.5 MG CAPSULE (FP) PO SCH (10:19)
[2019-02-14] MEDS: SERTRALINE HCL 50 MG TABLET (FP) PO SCH (10:19)
[2019-02-14] MEDS: TIOTROPIUM BROMIDE 2.5 MCG (SPIRIVA) RESPIMAT INHALER IH SCH (10:20)
[2019-02-14] MEDS ORDERED: PT OWN MED DRAWER 7, Y5N ONE (16:49)
[2019-02-14] MEDS: THIAMINE HCL 100 MG TABLET (FP) PO SCH (21:18)
[2019-02-14] MEDS: ATORVASTATIN CA 40 MG TABLET (FP) PO SCH (21:18)
[2019-02-15 07:02] VITALS: TEMP 97.7
[2019-02-15] MEDS: LIPASE/PROTEASE/AMYLASE 6,000 UNIT CAPSULE PO SCH (07:35)
[2019-02-15] MEDS: HYDROCHLOROTHIAZIDE 12.5 MG CAPSULE (FP) PO SCH (09:04)
[2019-02-15] MEDS: LOSARTAN POTASSIUM 50 MG TABLET (FP) PO SCH (09:04)
[2019-02-15] MEDS: TIOTROPIUM BROMIDE 2.5 MCG (SPIRIVA) RESPIMAT INHALER IH SCH (09:05)
[2019-02-15] MEDS: PRENATAL VITAMINS W/ FOLIC ACID TABLET (FP) PO SCH (09:05)
[2019-02-15] MEDS: SERTRALINE HCL 50 MG TABLET (FP) PO SCH (09:06)
[2019-02-15 10:22] VITALS: BP 110/63; PULSE 89
--- NOTE | 2019-02-15 11:12 | PN ---
S Progress Note Note: PT COMPLETED REHAB AND DISCHARGED TODAY. PT HAS BEEN RFERRED [facility] ON [address] [place], [place] FOR CD AFTERCARE. PT REPORTS SHE HAS A PCP, MARCK STRICKLAND AT [place], [place] AND HAS NEXT APPOINTMENT ON 02/19/19. PT IS ALERT O X 3. DENIES S/H/I. Vital Signs 02/15/19 02/15/19 07:01 10:00 Temperature 97.7 F Pulse Rate 99 H 89 Respiratory 18 Rate Blood Pressure 111/73 110/63 Laboratory Tests 02/01/19 08:25 Sodium 138 Potassium 3.7 Chloride 105 Carbon Dioxide 26 Anion Gap 7 L BUN 8 Creatinine 0.9 Creat Clearance w eGFR 62.27 Random Glucose 127 H Calcium 8.7 NAD MEDICALLY STABLE PLAN:FOLLOW UP WITH CD AFTERCARE RECOMMENDATION. FOLLOW UP WITH APPOINTMENT WITH PCP ON 02/19/19 FOR MEDICAL MANAGEMENT.
== END 2019-02-15 10:32 | disposition home or self-care (01) | DRG 895 ==
LOC: YASAS 13:25 → Y3E 13:27
PROVIDERS: ADMIT Neuromusculoskeletal Medicine & OMM; ATTEND Neuromusculoskeletal Medicine & OMM
PROC: HZ42ZZZ Group Counseling for Substance Abuse Treatment, Cognitive-Behavioral (ICD-10-PCS; principal; 2019-01-31)
DX: F10.20 Alcohol dependence, uncomplicated (principal); I10 Essential (primary) hypertension; K21.9 Gastro-esophageal reflux disease without esophagitis; J45.909 Unspecified asthma, uncomplicated; E78.5 Hyperlipidemia, unspecified; R60.0 Localized edema
CPT/HCPCS: 36415; 80048; 94640